=== PATIENT | male | born 1985 | race Caucasian/White ===

== ENCOUNTER 2018-08-10 05:32 | Emergency (ER) | payer OTHER ==
[2018-08-10 05:38] VITALS: BP 132/90
[2018-08-10] MEDS ORDERED: DEXAMETHASONE SOD PHOSPHATE INJ 4 MG/1 ML VIAL IV ONE (06:46)
[2018-08-10] MEDS ORDERED: KETOROLAC TROMETHAMINE 60 MG/2 ML SDV IM ONE (06:46)
[2018-08-10] MEDS ORDERED: TRAMADOL HCL 50 MG TABLET PO ONE (06:50)
[2018-08-10] MEDS ORDERED: LIDOCAINE 5% (700 MG) TRANSDERMAL ADH..PATCH TP ONE (06:50)
--- NOTE | 2018-08-10 06:50 | ER Document Report ---
ED General - General Chief Complaint: Back Pain Stated Complaint: LOWER BACK INJURY Time Seen by Provider: 08/10/18 06:16 Primary Care Provider: DINESH PUGA [Primary Care Provider] - Follow up as needed TRAVEL OUTSIDE OF THE [place] IN LAST 30 DAYS: No - HPI Patient complains to provider of: Low back pain Notes: Patient coming in for evaluation of low back pain. Patient states he was moving pallets earlier this morning when he had midline low back pain. Patient denies any numbness tingling denies any weakness patient denies any incontinence of bowel or bladder. Patient otherwise is standing upon my evaluation denies any radiation of pain down his legs but does state pain is in his buttocks. Denies any trauma - Related Data Allergies/Adverse Reactions: No Known Allergies Allergy (Unverified 08/10/18 07:04) Past Medical History - Social History Smoking Status: Never Smoker Frequency of alcohol use: None Drug Abuse: None Family History: Reviewed & Not Pertinent Patient has suicidal ideation: No Patient has homicidal ideation: No Renal/ Medical History: Denies: Hx Peritoneal Dialysis Review of Systems - Review of Systems Constitutional: No symptoms reported EENT: No symptoms reported Cardiovascular: No symptoms reported Respiratory: No symptoms reported Gastrointestinal: No symptoms reported Genitourinary: No symptoms reported Male Genitourinary: No symptoms reported Musculoskeletal: Back pain Skin: No symptoms reported Hematologic/Lymphatic: No symptoms reported Neurological/Psychological: No symptoms reported -: Yes All other systems reviewed and negative Physical Exam - Vital signs Vitals: Temp Pulse Resp BP Pulse Ox 97.8 F 93 14 132/90 H 100 08/10/18 05:33 08/10/18 05:33 08/10/18 05:33 08/10/18 05:33 08/10/18 05:33 Interpretation: Normal - General General appearance: Appears well, Alert - HEENT Head: Normocephalic, Atraumatic Eyes: Normal Pupils: PERRL - Respiratory Respiratory status: No respiratory distress Chest status: Nontender Breath sounds: Normal Chest palpation: Normal - Cardiovascular Rhythm: Regular Heart sounds: Normal auscultation Murmur: No - Abdominal Inspection: Normal Distension: No distension Bowel sounds: Normal Tenderness: Nontender Organomegaly: No organomegaly - Back Back: Normal, Tender - Pain to palpation bilateral paraspinal region with pain also present palpation of the bilateral gluteus ami and there is no pain that is reproduced on patient's leg. - Extremities General upper extremity: Normal inspection, Nontender, Normal color, Normal ROM, Normal temperature General lower extremity: Normal inspection, Nontender, Normal color, Normal ROM, Normal temperature, Normal weight bearing. No: Kami's sign - Neurological Neuro grossly intact: Yes Cognition: Normal Orientation: AAOx4 [place] Coma Scale Eye Opening: Spontaneous [place] Coma Scale Verbal: Oriented [place] Coma Scale Motor: Obeys Commands [place] Coma Scale Total: 15 Speech: Normal Motor strength normal: LUE, RUE, LLE, RLE Sensory: Normal - Psychological Associated symptoms: Normal affect, Normal mood - Skin Skin Temperature: Warm Skin Moisture: Dry Skin Color: Normal Course - Re-evaluation Re-evalutation: 08/10/18 14:41 The patient presents with low back pain without signs of spinal cord compression, cauda equina syndrome, infection, aneurysm, or other serious etiology. The patient is neurologically intact. Given the extremely low risk of these diagnoses further testing and evaluation for these possibilities does not appear to be indicated at this time. The patient has been instructed to return if the symptoms worsen or change in any way. 08/10/18 14:41 Patient continued tramadol at home will give a dose of steroids no critical pathology seen - Vital Signs Vital signs: Temp Pulse Resp BP Pulse Ox 97.8 F 93 14 132/90 H 100 08/10/18 05:33 08/10/18 05:33 08/10/18 05:33 08/10/18 05:33 08/10/18 05:33 Discharge - Discharge Clinical Impression: Back pain Qualifiers: Back pain location: low back pain Chronicity: acute Back pain laterality: bilateral Sciatica presence: without sciatica Qualified Code(s): M54.5 - Low back pain Condition: Good Disposition: HOME, SELF-CARE Instructions: Ice Packs ([facility]), Low Back Pain ([facility]), Muscle Strain ([facility]), Oral Narcotic Medication ([facility]), Warm Packs ([facility]) Additional Instructions: Your evaluation today is consistent with a back sprain. I recommend ice packs warm packs Tylenol and Motrin as prescribed to help out with your back pain. Please continue on with your tramadol at home. He may also use [id number] lidocaine patches to help out with your pain control. Return to the ER if symptoms worsen take medications as prescribed. Please follow-up with your physician in 5-7 days if symptoms do not improve Prescriptions: Ibuprofen [Motrin 600 mg Tablet] 600 mg PO Q8HP PRN #21 tablet PRN Reason: [facility]errals: [facility] [[facility]] - Follow up as needed
[2018-08-10] MEDS ORDERED: DEXAMETHASONE SOD PHOSPHATE INJ 4 MG/1 ML VIAL IM ONE (07:00)
== END 2018-08-10 07:18 | disposition home or self-care (01) ==
LOC: ER 05:32
DX: M54.5 Low back pain (principal); M79.18 Myalgia, other site; X50.0XXA Overexertion from strenuous movement or load, initial encounter; Y99.0 Civilian activity done for income or pay
CPT/HCPCS: 99283; 96372; J1100; J1885

== ENCOUNTER 2018-11-30 05:00 | Emergency (ER) | payer OTHER ==
[2018-11-30 07:15] LABS: ABSOLUTE EOSINOPHILS # (AUTO) 0.1 10^3/uL (0.0-0.6); ABSOLUTE LYMPHOCYTES (AUTO) 2.1 10^3/uL (0.5-4.7); ABSOLUTE MONOCYTES (AUTO) 0.7 10^3/uL (0.1-1.4); ABSOLUTE NEUT (AUTO) 5.9 10^3/uL (1.7-8.2); BASOPHILS % (AUTO) 0.3 % (0-2); EOSINOPHILS % (AUTO) 1.5 % (0-6); HEMATOCRIT 45.5 % (37.9-51.0); HEMOGLOBIN 15.4 g/dL (13.5-17.0); LYMPHOCYTES % (AUTO) 24.2 % (13-45); MEAN CORPUSCULAR HEMOGLOBIN 31.2 pg (27.0-33.4); MEAN CORPUSCULAR HGB CONC 33.8 g/dL (32.0-36.0); MEAN CORPUSCULAR VOLUME 92 fl (80-97); MONOCYTES % (AUTO) 7.7 % (3-13); PLATELET COUNT 258 10^3/uL (150-450); RED BLOOD COUNT 4.94 10^6/uL (4.35-5.55); RED CELL DISTRIBUTION WIDTH 13.4 % (11.5-14.0); SEGMENTED NEUTROPHILS % (AUTO) 66.3 % (42-78); TOTAL CELLS COUNTED % (AUTO) 100 %; WHITE BLOOD COUNT 8.9 10^3/uL (4.0-10.5)
[2018-11-30 07:56] LABS: ALANINE AMINOTRANSFERASE 46 U/L (21-72); ALBUMIN 4.4 g/dL (3.5-5.0); ALKALINE PHOSPHATASE 61 U/L (38-126); ANION GAP 8 (5-19); ASPARTATE AMINO TRANSFERASE 39 U/L (17-59); BILIRUBIN,DIRECT 0.2 mg/dL (0.0-0.4); BILIRUBIN,TOTAL 0.5 mg/dL (0.2-1.3); BLOOD UREA NITROGEN 14 mg/dL (7-20); CALCIUM 9.7 mg/dL (8.4-10.2); CARBON DIOXIDE 30 mmol/L (22-30); CHLORIDE 103 mmol/L (98-107); GLUCOSE 113 mg/dL (75-110); POTASSIUM 4.6 mmol/L (3.6-5.0); SODIUM 141.4 mmol/L (137-145); TOTAL PROTEIN 7.3 g/dL (6.3-8.2)
--- NOTE | 2018-11-30 08:32 | RADIOLOGY REPORT (SQ) ---
EXAM DESCRIPTION: U/S SCROTUM W/DOPPLER COMPLETED DATE/TIME: 11/30/2018 8:00 am REASON FOR STUDY: pain in testicles COMPARISON: None. TECHNIQUE: Static and realtime chapin scale imaging of the scrotum and testes. Selected color Doppler and spectral images recorded to document blood flow. LIMITATIONS: None. FINDINGS: RIGHT: TESTICLE: Normal size. Normal echotexture. Normal blood flow. No mass. EPIDIDYMIS: Normal. HYDROCELE OR VARICOCELE: No. HERNIA OR EXTRA-TESTICULAR MASS: No. OTHER: No other significant finding. LEFT: TESTICLE: Normal size. Normal echotexture. Normal blood flow. No mass. EPIDIDYMIS: Normal. HYDROCELE OR VARICOCELE: No. HERNIA OR EXTRA-TESTICULAR MASS: No. OTHER: No other significant finding. IMPRESSION: NORMAL SCROTAL ULTRASOUND. NO EVIDENCE OF TESTICULAR MASS OR TORSION. TECHNICAL DOCUMENTATION: JOB ID: [id number] [employer]- All Rights Reserved Reading location - IP/workstation name: [email or web address]
[2018-11-30] MEDS ORDERED: ACETAMINOPHEN 325 MG TABLET PO ONE (09:04)
[2018-11-30 09:24] LABS: APPEARANCE,URINE CLEAR; BILIRUBIN,URINE NEGATIVE (NEGATIVE); COLOR,URINE YELLOW; GLUCOSE, URINE NEGATIVE (NEGATIVE); KETONES,URINE NEGATIVE (NEGATIVE); LEUKOCYTE ESTERASE,URINE NEGATIVE (NEGATIVE); NITRITE,URINE NEGATIVE (NEGATIVE); PROTEIN,URINE NEGATIVE (NEGATIVE); URINE SPECIFIC GRAVITY 1.018; UROBILINOGEN,URINE NEGATIVE mg/dL (<2.0)
--- NOTE | 2018-11-30 10:22 | RADIOLOGY REPORT (SQ) ---
EXAM DESCRIPTION: CT ABD/PELVIS NO ORAL OR IV COMPLETED DATE/TIME: 11/30/2018 9:48 am REASON FOR STUDY: right pelvic and testicular pain, hematuria COMPARISON: None. TECHNIQUE: CT scan of the abdomen and pelvis performed without intravenous or oral contrast. Images reviewed with lung, soft tissue, and bone windows. Reconstructed coronal and sagittal MPR images revi ewed. All images stored on PACS. All CT scanners at this facility use dose modulation, iterative reconstruction, and/or weight based d osing when appropriate to reduce radiation dose to as low as reasonably achievable (ALARA). [facility]: Dose Right [facility]: CareDose [facility]: Dose Right [facility]: Teradose 4D [facility]: Smart Fit with Friends RADIATION DOSE: CT Rad equipment meets quality standard of care and radiation dose reduction techniq ues were employed. CTDIvol: 14.5 mGy. DLP: 800 mGy-cm.mGy. LIMITATIONS: None. FINDINGS: LOWER CHEST: No significant findings. No nodules or infiltrates. NON-CONTRASTED LIVER, SPLEEN, ADRENALS: Evaluation limited by lack of IV contrast. No identified sign ificant masses. PANCREAS: No masses. No peripancreatic inflammatory changes. GALLBLADDER: No identified stones by CT criteria. No inflammatory changes to suggest cholecystitis. RIGHT KIDNEY AND URETER: No suspicious masses. Assessment limited by lack of IV contrast. Tiny, 1-2 mm, calculus at the right ureterovesicular junction (axial series 3, image 80). No hydronephrosis or hydroureter. LEFT KIDNEY AND URETER: No suspicious masses. Assessment limited by lack of IV contrast. No signifi cant calcifications. No hydronephrosis or hydroureter. AORTA AND RETROPERITONEUM: No aneurysm. No retroperitoneal masses or adenopathy. BOWEL AND PERITONEAL CAVITY: No obvious masses or inflammatory changes. No free fluid. APPENDIX: Normal. PELVIS, BLADDER, AND ABDOMINAL WALL:No abnormal masses. No free fluid. Bladder normal. BONES: No significant findings. OTHER: No other significant finding. IMPRESSION: 1. TINY 1- 2 MM CALCULUS IN THE DISTAL RIGHT URETER AT THE URETEROVESICULAR JUNCTION. NO SIGNIFICANT HYDRONEPHROSIS OR HYDROURETER. 2. NO OTHER SIGNIFICANT OR ACUTE PROCESS IN THE ABDOMEN OR PELVIS. COMMENT: Quality ID # [id number]: Final reports with documentation of one or more dose reduction techniques (e.g., Automated exposure control, adjustment of the mA and/or kV according to patient size, use of iterative reconstruction technique) TECHNICAL DOCUMENTATION: JOB ID: [id number] [employer]- All Rights Reserved Reading location - IP/workstation name: [email or web address]
[2018-11-30] MEDS ORDERED: TAMSULOSIN HCL 0.4 MG CAP.SR.24H PO ONE (10:23)
--- NOTE | 2018-11-30 10:32 | ER Document Report ---
ED General - General Chief Complaint: Fainting Stated Complaint: SYNCOPE Time Seen by Provider: 11/30/18 06:28 TRAVEL OUTSIDE OF THE [place] IN LAST 30 DAYS: Yes - HPI Notes: Patient is a 33-year-old male who presents the emergency department for evaluation after syncopal episode. He woke in the middle the night with the pain in his right low pelvis. He states he went to urinate. He developed pain that radiated into his testicle, had a syncopal episode. He denies any fevers or chills. No nausea or vomiting. He had been eating and drinking normally prior to going to sleep at night. He states his pain at this point is actually very minimal, rates it a 1 at the most. He denies any dysuria, urinary frequency, gross hematuria. Nothing seems to change his pain at this time. - Related Data Allergies/Adverse Reactions: No Known Allergies Allergy (Unverified 08/10/18 07:04) Past Medical History - General Information source: Patient - Social History Smoking Status: Current Every Day Smoker Chew tobacco use (# tins/day): No Frequency of alcohol use: Occasional Drug Abuse: None Family History: Reviewed & Not Pertinent, Hypertension, Other - Crohn's disease Patient has suicidal ideation: No Patient has homicidal ideation: No Renal/ Medical History: Denies: Hx Peritoneal Dialysis Review of Systems - Review of Systems Constitutional: No symptoms reported EENT: No symptoms reported Cardiovascular: See HPI Respiratory: No symptoms reported Gastrointestinal: See HPI Genitourinary: No symptoms reported Male Genitourinary: See HPI Musculoskeletal: No symptoms reported Skin: No symptoms reported Neurological/Psychological: No symptoms reported Physical Exam - Vital signs Vitals: Temp Pulse Resp BP Pulse Ox 97.4 F 61 16 125/80 99 11/30/18 05:03 11/30/18 05:03 11/30/18 05:03 11/30/18 05:03 11/30/18 05:03 - Notes Notes: Vital signs reviewed, please refer to chart. Head is normocephalic, atraumatic. Pupils equal round, reactive to light. Oral mucosa is moist. He does have a small chip to the lateral maxillary incisor without evidence of damage to the gum or the tooth root. No facial tenderness. Neck is supple without meningis mus. Heart is regular rate and rhythm. Lungs are clear to auscultation bilaterally. Abdomen is soft, nontender, normoactive bowel sounds throughout. Genital exam is performed. No obvious lesions. Patient is circumcised. Bilateral testicles are descended with very mild scrotal tenderness, no focal tenderness in the testicles themselves. Intact cremasteric reflex. Extremities without cyanosis, clubbing. Posterior calves are nontender. Peripheral pulses are equal. Skin is warm and dry. Patient is awake, alert, neurological exam is nonfocal. Course - Re-evaluation Re-evalutation: 11/30/18 10:28 Patient presents emergency department for evaluation. He was placed on a equipment monitor phototypesetting, laboratory investigations, EKG were obtained. Urinalysis was ordered. Laboratory investigations were remarkable for blood in his urine. Testicular ultrasound and CT scan of the abdomen and pelvis ordered. Testicular ultrasound was unremarkable. CT scan revealed ureterolithiasis on the right at the UVJ. Patient was given Flomax. His pain was minimal here. We will send him home with Flomax, anti-inflammatories. His gonorrhea and Chlamydia testing are pending at this time, will follow this up. He is to follow-up with primary care this week, return to the emergency department with worsening or new concerning symptoms of any sort. - Vital Signs Vital signs: Temp Pulse Resp BP Pulse Ox 97.4 F 61 16 125/80 99 11/30/18 05:03 11/30/18 05:03 11/30/18 05:03 11/30/18 05:03 11/30/18 05:03 - Laboratory Result Diagrams: 11/30/18 06:53 11/30/18 06:53 Laboratory results interpreted by me: 11/30/18 11/30/18 06:53 09:00 Glucose 113 H Urine Blood MODERATE H - Diagnostic Test Radiology reviewed: Reports reviewed Radiology results interpreted by me: 11/30/18 10:29 Scrotum Ultrasound 11/30/18 00:00 IMPRESSION: NORMAL SCROTAL ULTRASOUND. NO EVIDENCE OF TESTICULAR MASS OR TORSION. Abdomen/Pelvis CT 11/30/18 09:33 IMPRESSION: 1. TINY 1- 2 MM CALCULUS IN THE DISTAL RIGHT URETER AT THE URETEROVESICULAR JUNCTION. NO SIGNIFICANT HYDRONEPHROSIS OR HYDROURETER. 2. NO OTHER SIGNIFICANT OR ACUTE PROCESS IN THE ABDOMEN OR PELVIS. - EKG Interpretation by Me Additional EKG results interpreted by me: 11/30/18 10:29 Sinus mechanism with a rate of 60 bpm. Normal axis, normal intervals. Nonspecific ST changes, but no acute changes concerning for ischemia or infarction. Discharge - Discharge Clinical Impression: Ureterolithiasis, Syncope and collapse, Chipped tooth Condition: Stable Disposition: HOME, SELF-CARE Instructions: Kidney Stone ([facility]), Syncopal Episode ([facility]) Additional Instructions: Take medication as prescribed. See a dentist regarding your tooth. Flomax as directed, watch for dizziness as discussed. Follow-up with your primary care physician this week. Return to the emergency department with worsening or new concerning symptoms.
[2018-11-30 10:45] LABS: CHLAM PCR NOT DETECTED (NOT DETECT); GON PCR NOT DETECTED (NOT DETECT)
[2018-11-30 10:56] VITALS: BP 112/60
--- NOTE | 2018-12-02 10:18 | EKG REPORT ---
SEVERITY:- ABNORMAL ECG - SINUS RHYTHM NONSPECIFIC T ABNORMALITIES, INFERIOR LEADS : Confirmed by: Lori Morris 02-Dec-2018 10:18:08
== END 2018-11-30 10:56 | disposition home or self-care (01) ==
LOC: ER 05:00
DX: N20.1 Calculus of ureter (principal); R55 Syncope and collapse; S02.5XXA Fracture of tooth (traumatic), initial encounter for closed fracture; R10.2 Pelvic and perineal pain; N50.819 Testicular pain, unspecified; X58.XXXA Exposure to other specified factors, initial encounter; F17.200 Nicotine dependence, unspecified, uncomplicated
CPT/HCPCS: 36415; 74176; 76870; 80053; 81001; 85025; 87491; 87591; 93005; 93010; 93976; 99284